=== PATIENT | male | born 1975 | race Caucasian/White ===

== ENCOUNTER 2024-08-17 12:52 | Outpatient (CLI) | payer OTHER, SELFPAY ==
--- NOTE | 2024-08-17 | MM_ITS ---
WS: [id number] BILATERAL 3D TOMOSYNTHESIS DIGITAL DIAGNOSTIC MAMMOGRAPHY WITH CAD CLINICAL INFORMATION: LEFT BREAST ENLARGEMENT HISTORY: Palpable lump LEFT breast COMPARISON: None. TECHNIQUE: Bilateral CC, MLO, and ML views. FINDINGS: Scattered fibroglandular densities bilaterally. Palpable marker LEFT breast. Ultrasound of this area is pending. ULTRASOUND BREAST LEFT TECHNIQUE: Ultrasound left breast focused area of concern. CLINICAL INFORMATION: LEFT BREAST ENLARGEMENT FINDINGS: Ultrasound LEFT breast area of palpable concern. Shadowing subareolar parenchymal tissue compatible with gynecomastia. No suspicious cystic or solid lesions to target for biopsy. Comparison RIGHT nipple performed which demonstrates a small amount of shadowing gynecomastia. MM/MM diag BI tomosynthesis [id number] IMPRESSION: DENSITY: There are scattered areas of fibroglandular density. BI-RADS: 2 - Benign. FOLLOW UP: See Report
--- NOTE | 2024-08-17 13:03 | US_ITS ---
WS: [id number] BILATERAL 3D TOMOSYNTHESIS DIGITAL DIAGNOSTIC MAMMOGRAPHY WITH CAD CLINICAL INFORMATION: LEFT BREAST ENLARGEMENT HISTORY: Palpable lump LEFT breast COMPARISON: None. TECHNIQUE: Bilateral CC, MLO, and ML views. FINDINGS: Scattered fibroglandular densities bilaterally. Palpable marker LEFT breast. Ultrasound of this area is pending. ULTRASOUND BREAST LEFT TECHNIQUE: Ultrasound left breast focused area of concern. CLINICAL INFORMATION: LEFT BREAST ENLARGEMENT FINDINGS: Ultrasound LEFT breast area of palpable concern. Shadowing subareolar parenchymal tissue compatible with gynecomastia. No suspicious cystic or solid lesions to target for biopsy. Comparison RIGHT nipple performed which demonstrates a small amount of shadowing gynecomastia. US/US breast BI limited* [id number] IMPRESSION: DENSITY: There are scattered areas of fibroglandular density. BI-RADS: 2 - Benign. FOLLOW UP: See Report
== END 2024-08-17 12:53 | disposition home or self-care (01) ==
LOC: RAD 12:55
PROVIDERS: Family Provider Family Medicine; PCP Family Medicine; Visit Provider Family Medicine
DX: N62 Hypertrophy of breast (principal); R92.323 Mammographic fibroglandular density, bilateral breasts
CPT/HCPCS: 76642; 77062; G0279